=== PATIENT | male | born 1965 | race Caucasian/White ===

== ENCOUNTER → 2020-11-13 | Outpatient (CLI) | payer SELFPAY ==
[~2020-11-13] MED LIST: BAMLANIVIMAB 700 MG in NS 200 ML IV ONE; EPINEPHrine INJECTION 1 MG/ML AMP IM PRN; diphenhydrAMINE 50 MG/ML INJ (BENADRYL) IV PRN
[2020-11-13 08:30] VITALS: BP 193/83
[2020-11-13 10:25] VITALS: BP 155/87
== END ==
LOC: INFUSION 08:12
PROVIDERS: ATTEND Family Medicine
DX: U07.1 COVID-19 (principal); I25.10 Atherosclerotic heart disease of native coronary artery without angina pectoris